=== PATIENT | female | born 1990 | race Caucasian/White ===

== ENCOUNTER 2018-06-14 16:17 | Emergency (ER) | payer OTHER ==
--- NOTE | 2018-06-14 17:02 | PDOC ---
Rapid Medical Evaluation Time Seen by Provider: 06/14/18 16:56 Medical Evaluation: Allergies Allergy/AdvReac Type Severity Reaction Status Date / Time No Known Allergies Allergy Verified 06/14/18 16:55 06/14/18 16:59 Pt presents to the ED for RUQ pain for one week. States the pain has been intermittant for one week. Also with early (possible twin gestations) . No vaginal bleeding Exam: TTP of RUQ Orders: Labs, urine, US Pt to proceed to ED for further evaluation Discharge Disposition - Diagnosis Abdominal pain affecting - Referrals - Patient Instructions - Post Discharge Activity
[2018-06-14 17:12] VITALS: BP 109/78; PULSE 74; TEMP 98; BMI 25.7
[2018-06-14 17:31] LABS: BASO % 0.4 % (0-2.0); EOS % 0.3 % (0-4.5); HEMATOCRIT 38.6 % (32.4-45.2); HEMOGLOBIN 13.4 GM/dL (10.7-15.3); LYMPH % 19.7 % (8-40); MCH 29.1 pg (25.7-33.7); MCHC 34.6 g/dl (32.0-36.0); MEAN PLT VOLUME 8.5 fl (7.5-11.1); MONO % 4.7 % (3.8-10.2); NEUT % 74.9 % (42.8-82.8); PLATELET COUNT 236 K/MM3 (134-434); RBC 4.59 M/mm3 (3.60-5.2); RDW 13.7 % (11.6-15.6); WHITE BLOOD COUNT 9.7 K/mm3 (4.0-10.0)
[2018-06-14 18:27] LABS: URINE APPEARANCE CLEAR; URINE BILIRUBIN NEGATIVE (<2.0 mg/dL); URINE COLOR STRAW; URINE GLUCOSE (UA) NEGATIVE (NEGATIVE); URINE KETONE NEGATIVE (NEGATIVE); URINE LEUK ESTERASE NEGATIVE (NEGATIVE); URINE NITRITE NEGATIVE (NEGATIVE); URINE PROTEIN NEGATIVE (NEGATIVE); URINE UROBILINOGEN NEGATIVE mg/dL (0.2-1.0)
[2018-06-14 18:35] LABS: ANION GAP 7 MMOL/L (8-16); BLOOD UREA NITROGEN 8 mg/dL (7-18); CHLORIDE 103 mmol/L (98-107); CO2 26 mmol/L (21-32); CREATININE 0.5 mg/dL (0.55-1.3); GLUCOSE,RANDOM 82 mg/dL (74-106); SODIUM 136 mmol/L (136-145)
[2018-06-14 18:36] LABS: ALBUMIN 3.8 g/dl (3.4-5.0); ALK PHOS 72 U/L (45-117); BILIRUBIN,TOTAL 0.2 mg/dL (0.2-1); LIPASE 121 U/L (73-393); SGOT/AST 11 U/L (15-37); SGPT/ALT 19 U/L (13-61); TOT PROT 7.2 g/dl (6.4-8.2)
--- NOTE | 2018-06-14 18:48 | PDOC ---
History of Present Illness - General Chief Complaint: Pain Stated Complaint: PAIN Time Seen by Provider: 06/14/18 16:56 History Source: Patient Exam Limitations: No Limitations - History of Present Illness Initial Comments: 06/14/18 18:39 28 yo F LMP 05/02/2018 with a hx of gastritis, GERD, and molar in [id number] presents to the emergency department with nausea and RUQ pain that has been ongoing for approximately 2 weeks. Per the patient, she states that she gets this "discomfort" in the RUQ area and right upper back that is intermittent and can sometimes be sharp in nature without aggravation or relieving factors. Over the past few days, she has had increasing nausea without emesis. She denies fevers, chills, chest pain, SOB, dysuria, hematuria, vaginal bleeding/discharge, hx of gallstones, abdominal surgery, diarrhea, and hematochezia. Denies recent travels. Past History - Past Medical History Allergies/Adverse Reactions: Allergies Allergy/AdvReac Type Severity Reaction Status Date / Time No Known Allergies Allergy Verified 06/14/18 16:55 Home Medications: Ambulatory Orders NK [No Known Home Medication] 06/14/18 COPD: No - Suicide/Smoking/Psychosocial Hx Smoking History: Never smoked Hx Alcohol Use: No Drug/Substance Use Hx: No Review of Systems - Review of Systems Able to Perform ROS?: Yes Is the patient limited Tajik proficient: No Constitutional: No: Chills, Diaphoresis, Fever, Weakness, Unexplained wgt Loss HEENTM: No: Recent change in vision, Ear Pain, Nose Pain, Throat Pain, Mouth Pain Respiratory: No: Cough, Shortness of Breath, SOB with Exertion, Hemoptysis Cardiac (ROS): No: Chest Pain, Lightheadedness, Palpitations, Syncope, Chest Tightness ABD/GI: Yes: Nausea. No: Constipated, Diarrhea, Rectal Bleeding, Vomiting, Tarry Stools : Yes: Flank Pain (right). No: Burning, Dysuria, Hematuria, Urgency Musculoskeletal: No: Back Pain, Joint Pain, Neck Pain Integumentary: No: Bruising, Pruritus, Rash Neurological: No: Headache, Numbness, Ataxia Psychiatric: No: Change in Appetite Endocrine: No: Unexplained Weight Gain Hematologic/Lymphatic: No: Anemia *Physical Exam - Vital Signs Last Vital Signs Temp Pulse Resp BP Pulse Ox 98 F 74 16 109/78 99 06/14/18 16:55 06/14/18 16:55 06/14/18 16:55 06/14/18 16:55 06/14/18 16:55 - Physical Exam General Appearance: Yes: Nourished, Appropriately Dressed. No: Apparent Distress, Intoxicated HEENT: positive: EOMI, SEBASTIAN, Normal Voice, Pharynx Normal, Hearing Grossly Normal. negative: Pale Conjunctivae, Scleral Icterus (R), Scleral Icterus (L), Muffled/Hoarse voice, Pharyngeal Erythema, Tonsillar Exudate, Tonsillar Erythema , Nasal Congestion, Rhinorrhea, Excessive drooling Neck: positive: Trachea midline, Supple. negative: Tender, Lymphadenopathy (R) , Lymphadenopathy (L), Tender lateral, Tender midline Respiratory/Chest: positive: Lungs Clear, Normal Breath Sounds. negative: Chest Tender, Respiratory Distress, Accessory Muscle Use, Crackles, Rales, Rhonchi, Stridor, Wheezing Cardiovascular: positive: Regular Rhythm, Regular Rate, S1, S2. negative: Systolic Murmur Gastrointestinal/Abdominal: positive: Normal Bowel Sounds, Tender (RUQ), Flat, Soft. negative: Rebound, Hernia Lymphatic: negative: Adenopathy Musculoskeletal: positive: Normal Inspection. negative: CVA Tenderness, Vertebral Tenderness Extremity: positive: Normal Capillary Refill, Normal Inspection, Normal Range of Motion. negative: Tender, Swelling, Calf Tenderness Integumentary: positive: Normal Color, Dry, Warm. negative: Rash, Swelling Neurologic: positive: tombstone setter II-XII NML intact, Fully Oriented, Alert, Normal Mood/ Affect, Normal Response, Motor Strength 5/5. negative: EOM Palsy, Facial Droop , Sensory Deficit Moderate Sedation - Procedure Monitoring Vital Signs: Procedure Monitoring Vital Signs Temperature 98 F 06/14/18 16:55 Pulse Rate 74 06/14/18 16:55 Respiratory Rate 16 06/14/18 16:55 Blood Pressure 109/78 06/14/18 16:55 O2 Sat by Pulse Oximetry (%) 99 06/14/18 16:55 ED Treatment Course - LABORATORY CBC & Chemistry Diagram: 06/14/18 17:05 06/14/18 17:06 - ADDITIONAL ORDERS Additional order review: Laboratory Results 06/14/18 06/14/18 17:06 17:05 Sodium 136 Potassium 4.0 Chloride 103 Carbon Dioxide 26 Anion Gap 7 L BUN 8 Creatinine 0.5 L Creat Clearance w eGFR > 60 Random Glucose 82 Calcium 9.0 Total Bilirubin 0.2 AST 11 L ALT 19 Alkaline Phosphatase 72 Total Protein 7.2 Albumin 3.8 Lipase 121 Cancelled 06/14/18 17:05 RBC 4.59 MCV 84.0 MCHC 34.6 RDW 13.7 MPV 8.5 Neutrophils % 74.9 Lymphocytes % 19.7 Monocytes % 4.7 Eosinophils % 0.3 Basophils % 0.4 Medical Decision Making - Medical Decision Making 28 yo F LMP 05/02/2018 with a hx of gastritis, GERD, and molar in [id number] presents to the emergency department with nausea and RUQ pain that has been ongoing for approximately 2 weeks Initial vitalsl Initial Vital Signs Temp Pulse Resp BP Pulse Ox 98 F 74 16 109/78 99 06/14/18 16:55 06/14/18 16:55 06/14/18 16:55 06/14/18 16:55 06/14/18 16:55 Work up: ddx: cholelithiasis, cholecystitis vs gastritis vs pancreatitis vs msk strain vs GERD vs duodenal vs gastric ulcer vs appendicitis vs PE Laboratory Tests 06/14/18 06/14/18 06/14/18 17:05 17:05 17:06 WBC 9.7 RBC 4.59 Hgb 13.4 Hct 38.6 MCV 84.0 MCH 29.1 MCHC 34.6 RDW 13.7 Plt Count 236 MPV 8.5 Absolute Neuts (auto) 7.3 Neutrophils % 74.9 Lymphocytes % 19.7 Monocytes % 4.7 Eosinophils % 0.3 Basophils % 0.4 Nucleated RBC % 0 Sodium 136 Potassium 4.0 Chloride 103 Carbon Dioxide 26 Anion Gap 7 L BUN 8 Creatinine 0.5 L Creat Clearance w eGFR > 60 Random Glucose 82 Calcium 9.0 Total Bilirubin 0.2 AST 11 L ALT 19 Alkaline Phosphatase 72 Total Protein 7.2 Albumin 3.8 Lipase Cancelled 121 Beta HCG, Quant 71163.0 Urine Color Urine Appearance Urine pH Ur Specific Plato Urine Protein Urine Glucose (UA) Urine Ketones Urine Blood Urine Nitrite Urine Bilirubin Urine Urobilinogen Ur Leukocyte Esterase 06/14/18 17:13 WBC RBC Hgb Hct MCV MCH MCHC RDW Plt Count MPV Absolute Neuts (auto) Neutrophils % Lymphocytes % Monocytes % Eosinophils % Basophils % Nucleated RBC % Sodium Potassium Chloride Carbon Dioxide Anion Gap BUN Creatinine Creat Clearance w eGFR Random Glucose Calcium Total Bilirubin AST ALT Alkaline Phosphatase Total Protein Albumin Lipase Beta HCG, Quant Urine Color Straw Urine Appearance Clear Urine pH 7.0 Ur Specific Plato 1.005 L Urine Protein Negative Urine Glucose (UA) Negative Urine Ketones Negative Urine Blood Negative Urine Nitrite Negative Urine Bilirubin Negative Urine Urobilinogen Negative Ur Leukocyte Esterase Negative labs within normal limits. Abdominal US showed no evidence of cholelithiasis or cholecystitis. Transvaginal US showed 2 gestational sacs estimated 6 weeks 5 days with reassuring FHR. In addition, a left ovarian cyst is present. Patient was well appearing at discharge and able to ambulate. please refer to discharge instruction on instructions given for appendicitis and PE return instructions. The patient stated she will follow up with her OGYN physician Dr. Silva within 48 hours after discharge. Dispo: Discharge 06/15/18 12:53 06/15/18 12:55 *DC/Admit/Observation/Transfer Diagnosis at time of Disposition: Abdominal pain affecting - Discharge Dispostion Disposition: HOME Decision to Admit order: No - Referrals Referrals: Meggan Aldana [Primary Care Provider] - Evelin Silva MD [Staff Physician] - - Patient Instructions Printed Discharge Instructions: Common Discomforts and Bodily Changes During , Diet, DI for -- Discomforts and Remedies, DI for Abdominal Pain -- Early Additional Instructions: You were seen in the emergency department for your right upper quadrant pain. Your US shows twins with reassuring heart rate. Your bhcg was [id number]. Please follow up with your OBGYN physician within 48 hours after discharge for follow up care and management. in addition, please heed the following return precautions. While it is unlikely you have an appendicitis, the risk is still present. We cannot scan your abdomen with CT because of radiation exposure. please return to the emergency department if you have worsening symptoms or new concerning symptoms such as fevers, chills, and migration of pain. In addition, you have a risk for pulmonarty embolism which is a clot in the lungs. while we think it is unlikely you have this, the risk is present given that you are . the return precautions for this increased breathing, harder work of breathing, chest pain, and fevers. Please return to the emergency department immediately if you have any of these symptoms. Thank you. - Post Discharge Activity
--- NOTE | 2018-06-14 19:15 | PDOC ---
Attending Attestation - HPI HPI: 06/14/18 19:25 The patient is a 28 year old female, with a significant past medical history, who presents to the emergency department with, right upper quadrant discomfort with associated increased nausea. She denies any palpitations, LOC, lightheadedness, or urinary/bowel incontinence. She denies recent fevers, chills, headache or dizziness. She denies recent vomit, diarrhea or constipation. She denies recent dysuria, frequency, urgency or hematuria. She denies recent chest pain or shortness of breath. Allergies: NKDA Primary Care Physician: Dr. Aldana OBGYN: Dr. Silva <Lorne Ross - Last Filed: 06/14/18 19:31> - Resident Resident Name: Ole Rolon - ED Attending Attestation I have performed the following: I have examined & evaluated the patient, The case was reviewed & discussed with the resident, I agree w/resident's findings & plan - Physicial Exam PE: 06/14/18 19:47 Agree with resident's exam - Medical Decision Making 06/14/18 19:48 28-year-old female with confirmed twin gestation, live with intermittent right upper quadrant pain worse right before meals At the time of my evaluation patient was pain-free and actively eating dinner stating she feels better Labs are unremarkable Patient given precautionary return instructions should she develop any symptoms suggesting pulmonary embolism or acute appendicitis At this time there is no clinical indication for further imaging as CT scanning would present unnecessary radiation to the unborn fetus Impression intermittent right upper quadrant pain <Traci Mack - Last Filed: 06/14/18 19:50> Attestations - Attestations 06/14/18 19:31 Documentation prepared by Lorne Ross, acting as ophthalmic medical assistant for Traci Mack DO. <Lorne Ross - Last Filed: 06/14/18 19:31>
== END 2018-06-14 19:40 | disposition home or self-care (01) ==
LOC: JER 16:17
DX: O26.891 Other specified pregnancy related conditions, first trimester (principal); R10.9 Unspecified abdominal pain; Z3A.01 Less than 8 weeks gestation of pregnancy
CPT/HCPCS: 36415; 76705-TC; 76817-TC; 80053; 81003; 83690; 84702; 85025; 87086; 99282-25

== ENCOUNTER 2019-01-18 08:20 | Inpatient (IN) | payer OTHER | END 2019-01-22 14:40 | disposition home or self-care (01) | LOC: JDEL 08:20 → JLDR 09:13 → J3W 14:30 ==

== ENCOUNTER 2020-01-24 20:57 | Emergency (ER) | payer OTHER ==
[2020-01-24 21:03] VITALS: BP 124/76; PULSE 81; TEMP 98.1; BMI 25.7
--- NOTE | 2020-01-24 21:30 | PDOC ---
History of Present Illness - General Chief Complaint: Pain Stated Complaint: STUBBED LEFT PINKY TOE ON BEDFRAME Time Seen by Provider: 01/24/20 20:59 - History of Present Illness Initial Comments: 01/24/20 22:51 This otherwise healthy 29-year-old female presents with left toe injury: Yesterday morning, she stubbed her fifth toe against the edge of a bed. Since then, she has had pain with weightbearing, swelling and bruising at the base of the fifth toe. No previous history of fracture or other injury in this toe. No other injury sustained. No daily medications No known allergies Non-smoker/no daily alcohol or other recreational drug use Past History - Medical History Allergies/Adverse Reactions: Allergies Allergy/AdvReac Type Severity Reaction Status Date / Time No Known Allergies Allergy Verified 01/24/20 20:58 Home Medications: Ambulatory Orders NK [No Known Home Medication] 01/24/20 Asthma: No Cancer: No Cardiac Disorders: No COPD: No Diabetes: No HTN: No Seizures: No Thyroid Disease: No Other medical history: DENIES - Reproductive History Is Patient Now?: No - Psycho-Social/Smoking History Smoking History: Never smoked Have you smoked in the past 12 months: No Information on smoking cessation initiated: No - Substance Abuse Hx (Audit-C & DAST Scrn) How often the patient has a drink containing alcohol: Never Score: In Men: 4 or > Positive; In Women: 3 or > Positive: 0 Screen Result (Pos requires Nsg. Audit-10AR): Negative In the last yr the pt used illegal drug/Rx for NonMed reason: No Score: Yes response is considered Positive: 0 Screen Result (Positive result requires Nsg. DAST-10): Negative Review of Systems - Review of Systems Able to Perform ROS?: Yes Comments:: 12 point review of systems is negative except for what is noted in the history of present illness *Physical Exam - Vital Signs Last Vital Signs Temp Pulse Resp BP Pulse Ox 98.1 F 81 16 124/76 100 01/24/20 21:00 01/24/20 21:00 01/24/20 21:00 01/24/20 21:00 01/24/20 21:00 - Physical Exam GENERAL: Adult female, alert and oriented x3, no acute distress HEAD: Normal with no signs of trauma. EYES: PERRLA, EOMI, sclera anicteric, conjunctiva clear. EXTREMITIES: Left lower extremityfifth toe base moderately tender, mildly edematous and faintly ecchymotic; no deformity noted 2 cm x 3 cm mildly ecchymotic, mildly tender, moderately ecchymotic area proximal to the fifth toe Remainder of the extremity exam is normal NEUROLOGICAL: Cranial nerves II through XII grossly intact. Normal speech. No focal neurological deficits MUSCULOSKELETAL: Back non-tender to palpation, no CVA tenderness SKIN: Warm, Dry, normal turgor, no rashes or lesions noted. ED Progress Note - Progress Note Progress Note: 29-year-old woman, otherwise healthy, presents with left toe injury sustained yesterday: Stubbed fifth toe against base of her bed and has had pain, especially with weightbearing since then. Exam as noted. Because of the ecchymosis and tenderness over the fifth metatarsal bone, left foot x-ray performed: Preliminary interpretation by menondisplaced fracture of the proximal phalanx of the fifth toe. No obvious fracture or dislocation of the metatarsal bone. No other abnormality seen. Results discussed with patient. 2 x 2 gauze placed in the interdigital space between the fifth and fourth toe; fifth toe laurita taped to the fourth toe. Patient had residual pain on weightbearing after this, cast shoe was fitted. Patient will keep laurita taping of the fifth toe for the next 3 to 4 weeks. She should use the cast shoe as needed while ambulating. In the next few days, she should elevate and ice the area as much as she can. Patient will follow-up with her orthopedist if she has persistent pain, swelling or bruising of the area Discharge - Discharge Information Problems reviewed: Yes Clinical Impression/Diagnosis: Fracture of fifth toe, left, closed Qualifiers: Encounter type: initial encounter Qualified Code(s): S92.502A - Displaced unspecified fracture of left lesser toe(s), initial encounter for closed fracture Condition: Stable Disposition: HOME - Follow up/Referral - Patient Discharge Instructions Patient Printed Discharge Instructions: Toe Fracture Additional Instructions: Elevate left foot as much as possible over the next day Laurita tape fifth toe to fourth toe for the next 3 to 4 weeks (gauze between toe s) Use cast shoe as needed Ibuprofen/naproxen/acetaminophen as needed for pain Follow-up with your orthopedist if you have persistent pain/swelling - Post Discharge Activity
== END 2020-01-24 22:19 | disposition home or self-care (01) ==
LOC: FER 20:57
DX: S92.502A Displaced unspecified fracture of left lesser toe(s), initial encounter for closed fracture (principal)
CPT/HCPCS: 73630-TC-LT; 99284-25